=== PATIENT | female | born 1945 | race Caucasian/White ===

== ENCOUNTER 2020-06-09 11:11 | Outpatient (CLI) | payer MEDICARE | END 2020-06-09 11:12 | disposition home or self-care (01) | LOC: CSHULT 11:11 | PROVIDERS: ATTEND Physician Assistant Medical | DX: R10.11 Right upper quadrant pain (principal); R19.7 Diarrhea, unspecified; K86.81 Exocrine pancreatic insufficiency; R15.9 Full incontinence of feces | CPT/HCPCS: 76705 ==

== ENCOUNTER 2021-04-16 09:32 | Outpatient (CLI) | payer MEDICARE ==
[2021-04-16 21:47] LABS: SARS-CoV-2 PCR by NAA Not Detected (NotDetected)
== END 2021-04-16 09:33 | disposition home or self-care (01) ==
LOC: CSHLAB 09:32
PROVIDERS: ATTEND Specialist
DX: Z20.822 Contact with and (suspected) exposure to COVID-19 (principal); R13.10 Dysphagia, unspecified
CPT/HCPCS: U0003; U0005

== ENCOUNTER 2021-04-20 10:23 | Outpatient (CLI) | payer MEDICARE | END 2021-04-20 10:24 | disposition home or self-care (01) | LOC: CSHRAD 10:23 | PROVIDERS: ATTEND Specialist | DX: R13.10 Dysphagia, unspecified (principal) | CPT/HCPCS: 74220 ==